=== PATIENT | male | born 1995 | race Caucasian/White ===

== ENCOUNTER 2017-01-15 14:08 | Emergency (ER) | payer OTHER ==
--- NOTE | 2017-01-15 14:26 | EDPHY ---
H & P Stated Complaint: R calf pain/thinks blood clot Time Seen by Provider: 01/15/17 14:25 HPI/ROS: CHIEF COMPLAINT: Right calf pain HISTORY OF PRESENT ILLNESS: The patient presents to the ED with a several day history of right calf pain. The patient denies obvious antecedent injury. He did report running with his dog last week but failed notice any traumatic complaints following that event. The patient does report a family history of DVT. The patient's father is noted to have Factor 5 Leiden. The patient has no complaints of chest pain or shortness of breath. The patient himself is not have prior history of PE or DVT. The patient reports his pain is moderate and worsened with palpation. REVIEW OF SYSTEMS: A comprehensive 10 point review of systems is otherwise negative aside from elements mentioned in the history of present illness. Source: Patient Exam Limitations: No limitations - Medical/Surgical History Other PMH: denies - Family History Significant Family History: Other (Factor 5 Leiden) - Social History Smoking Status: Never smoked - Physical Exam Exam: General Appearance: Alert, no distress Eyes: Pupils equal and round no pallor or injection ENT, Mouth: Mucous membranes moist Respiratory: There are no retractions, lungs are clear to auscultation Cardiovascular: Regular rate and rhythm Gastrointestinal: Abdomen is soft and nontender, no masses, bowel sounds normal Neurological: Alert and oriented x4, grossly normal motor function Skin: Warm and dry, no rashes Musculoskeletal: Neck is supple nontender Extremities: Tenderness to palpation noted in the right calf, no significant edema, 2+ dorsalis pedis pulse Constitutional: Initial Vital Signs Temperature (C) 36.6 C 01/15/17 14:11 Heart Rate 85 01/15/17 14:11 Respiratory Rate 18 01/15/17 14:11 Blood Pressure 147/84 H 01/15/17 14:11 O2 Sat (%) 99 01/15/17 14:11 O2 Delivery Mode Room Air Allergies/Adverse Reactions: No Known Allergies Allergy (Unverified 01/15/17 14:14) Home Medications: Medication Instructions Recorded Rivaroxaban [Xarelto 15mg (*)] 15 mg PO BID #42 tab 01/15/17 Medical Decision Making - Diagnostics Imaging Results: Imaging Impressions Extremity Venous Study 01/15/17 14:25 Impression: There is deep venous thrombosis involving the paired peroneal veins in the right calf. Findings were discussed with Jefferson Oliveira MD at 15:30, on 01/15/2017. ED Course/Re-evaluation: Given the patient's history of Factor 5 Leiden and complaints of acute right atraumatic calf pain a stat right lower extremity ultrasound was ordered. The patient is noted to have brisk pulses to the right foot. The patient has normal capillary refill and is neurologically intact. The patient's ultrasound does demonstrate clot within the peroneal system. The patient has no clinical evidence of a PE. I did speak with the patient's primary care provider Dr. Padilla Brown. The patient will be started on Xarelto and follow up with Dr. Brown in the office. Differential Diagnosis: Differential diagnosis considered DVT, myofascial strain, arterial thrombosis - Data Points Laboratory Results: Laboratory Results 01/15/17 16:02 01/15/17 16:02 01/15/17 01/15/17 01/15/17 16:02 16:02 16:02 WBC 11.63 10^3/uL H 10^3/uL (3.80-9.50) RBC 5.65 10^6/uL 10^6/uL (4.40-6.38) Hgb 18.6 g/dL H g/dL (13.7-17.5) Hct 52.4 % H % (40.0-51.0) MCV 92.7 fL fL (81.5-99.8) MCH 32.9 pg pg (27.9-34.1) MCHC 35.5 g/dL g/dL (32.4-36.7) RDW 11.9 % % (11.5-15.2) Plt Count 172 10^3/uL 10^3/uL (150-400) MPV 9.4 fL fL (8.7-11.7) Neut % (Auto) 68.6 % % (39.3-74.2) Lymph % (Auto) 23.4 % % (15.0-45.0) Angelina % (Auto) 5.9 % % (4.5-13.0) Eos % (Auto) 1.2 % % (0.6-7.6) Baso % (Auto) 0.5 % % (0.3-1.7) Nucleat RBC Rel Count 0.0 % % (0.0-0.2) Absolute Neuts (auto) 7.97 10^3/uL H 10^3/uL (1.70-6.50) Absolute Lymphs (auto) 2.72 10^3/uL 10^3/uL (1.00-3.00) Absolute Monos (auto) 0.69 10^3/uL 10^3/uL (0.30-0.80) Absolute Eos (auto) 0.14 10^3/uL 10^3/uL (0.03-0.40) Absolute Basos (auto) 0.06 10^3/uL 10^3/uL (0.02-0.10) Absolute Nucleated RBC 0.00 10^3/uL 10^3/uL (0-0.01) Immature Gran % 0.4 % % (0.0-1.1) Immature Gran # 0.05 10^3/uL 10^3/uL (0.00-0.10) PT 13.8 SEC SEC (12.0-15.0) INR 1.07 (0.83-1.16) APTT 25.2 SEC SEC (23.0-38.0) Sodium 142 mEq/L mEq/L (134-144) Potassium 4.4 mEq/L mEq/L (3.5-5.2) Chloride 105 mEq/L mEq/L (97-110) Carbon Dioxide 24 mEq/l mEq/l (22-31) Anion Gap 13 mEq/L mEq/L (8-16) BUN 16 mg/dL mg/dL (7-23) Creatinine 0.9 mg/dL mg/dL (0.7-1.3) Estimated GFR > 60 Glucose 97 mg/dL mg/dL (70-100) Calcium 10.2 mg/dL mg/dL (8.5-10.4) Departure - Departure Disposition: Home, Routine, Self-Care Clinical Impression: DVT (deep venous thrombosis) Qualifiers: DVT location: lower extremity Affected thrombotic vein of extremity: popliteal Chronicity: acute Laterality: right Qualified Code(s): I82.431 - Acute embolism and thrombosis of right popliteal vein Condition: Good Instructions: Deep Venous Thrombosis (ED) Additional Instructions: 1. Please begin the blood thinners as directed. 2. Please schedule a follow-up appointment with Dr. Brown. 3. You will take Xarelto 15 mg twice a day for 21 days and then transition to 20 mg once daily. 4. Please return to the ED for any acute chest pain or difficulty breathing. Referrals: Padilla Brown MD [Primary Care Provider] - As per Instructions Prescriptions: Rivaroxaban [Xarelto 15mg (*)] 15 mg PO BID #42 tab
[2017-01-15 16:13] LABS: % IMMATURE GRANULYOCYTES 0.4 % (0.0-1.1); ABSOLUTE IMMATURE GRANULOCYTES 0.05 10^3/uL (0.00-0.10); ADD DIFF? NO; ADD MORPH? NO; ADD SCAN? NO; ATYPICAL LYMPHOCYTE FLAG 20 (0-99); FRAGMENT RBC FLAG 0 (0-99); HEMATOCRIT 52.4 % (40.0-51.0); HEMOGLOBIN 18.6 g/dL (13.7-17.5); LEFT SHIFT FLG 0 (0-99); LIPEMIA HEMOLYSIS FLAG 90 (0-99); MEAN CELL HEMOGLOBIN 32.9 pg (27.9-34.1); MEAN CELL HEMOGLOBIN CONCENTR. 35.5 g/dL (32.4-36.7); MEAN CELL VOLUME 92.7 fL (81.5-99.8); MEAN PLATELET VOLUME 9.4 fL (8.7-11.7); PLATELET CLUMPS FLAG 0 (0-99); PLATELET COUNT 172 10^3/uL (150-400); RED BLOOD CELL COUNT 5.65 10^6/uL (4.40-6.38); RED CELL DISTRIBUTION WIDTH 11.9 % (11.5-15.2)
[2017-01-15 16:21] LABS: ANION GAP 13 mEq/L (8-16); CALCIUM 10.2 mg/dL (8.5-10.4); CARBON DIOXIDE 24 mEq/l (22-31); CHLORIDE 105 mEq/L (97-110); CREATININE 0.9 mg/dL (0.7-1.3); GLOMERULAR FILTRATION RATE > 60; GLUCOSE 97 mg/dL (70-100); POTASSIUM 4.4 mEq/L (3.5-5.2); SODIUM 142 mEq/L (134-144)
[2017-01-15 16:25] LABS: APTT 25.2 SEC (23.0-38.0); INR 1.07 (0.83-1.16); PROTIME(PATIENT) 13.8 SEC (12.0-15.0)
[2017-01-15] MEDS ORDERED: RIVAROXABAN 15 MG TAB PO ONE (16:30)
[2017-01-15 17:09] VITALS: BP 124/78; PULSE 81; RESP 16; TEMP 98.1; O2SAT 97
[2017-01-18 16:29] LABS: INTERPRETATION See Comments
== END 2017-01-15 17:08 | disposition home or self-care (01) ==
DX: I82.431 Acute embolism and thrombosis of right popliteal vein (principal); Z79.01 Long term (current) use of anticoagulants

== ENCOUNTER 2018-01-26 19:42 | Emergency (ER) | payer OTHER ==
--- NOTE | 2018-01-26 20:16 | EDPHY ---
H & P Time Seen by Provider: 01/26/18 20:04 HPI/ROS: CHIEF COMPLAINT: Right leg pain HISTORY OF PRESENT ILLNESS: Patient is a 23-year-old male inconsistently on Xarelto with a previous DVT who presents emergency department with right lower extremity pain. Patient states he was diagnosed with a right lower extremity DVT in 2017. He was worked up because his dad has factor 5 Leiden. His testing was negative. He has been on Xarelto since that time. The patient states over the past few weeks he has it been inconsistent with his Xarelto. Patient states that he has missed 5 doses over the past 2 weeks. He currently has a prescription and pills at home. Patient has no recent travel. He denies smoking. REVIEW OF SYSTEMS: 10 systems were reveiwed and are negative with the exception of the elements mentioned in the history of present illness. Past Medical/Surgical History: Includes previous DVT, jaw surgery foot surgery Family history: The patient's father has factor 5 Leiden Smoking Status: Never smoked Physical Exam: Vitals noted GENERAL: Well-appearing, in no acute distress, alert. HEENT: Eyes normal to inspection, normal pharynx, no signs of dehydration. NECK: Normal, supple. RESPIRATORY: Clear to auscultation bilaterally, no rales, rhonchi or wheezing. CVS: Regular rate and rhythm, no rubs, murmurs, or gallops. ABDOMEN: Soft, nontender, nondistended, no organomegaly. BACK: Normal to inspection, no CVA tenderness. SKIN: Normal color, no rash, warm, dry. No pallor. EXTREMITIES: No pedal edema, no calf tenderness, no Homans sign or cords, no joint swelling. NEURO/PSYCH: Alert and oriented, normal mood and affect, normal motor sensory exam. Constitutional: Initial Vital Signs Temperature (C) 36.7 C 01/26/18 19:46 Heart Rate 69 01/26/18 19:46 Respiratory Rate 20 01/26/18 19:46 Blood Pressure 111/57 L 01/26/18 19:46 O2 Sat (%) 98 01/26/18 19:46 Allergies/Adverse Reactions: No Known Allergies Allergy (Unverified 01/26/18 19:45) Home Medications: Medication Instructions Recorded Rivaroxaban [Xarelto 15mg (*)] 15 mg PO BID #42 tab 01/15/17 Medical Decision Making ED Course/Re-evaluation: Emergency department I discussed possible etiologies with the patient. I answered all his questions. Ultrasound of the right lower extremity was ordered. Ultrasound: Please refer the dictated report. No acute disease noted. No DVT. I discussed the results with the patient. I answered all his questions. He was instructed on the proper use of his Xarelto. He will follow up with primary care physician. He was given warnings prior to leaving. Differential Diagnosis: My differential includes but is not limited to DVT, arterial occlusion, popliteal cyst, abscess, strain, sprain Departure - Departure Disposition: Home, Routine, Self-Care Clinical Impression: Right leg pain Condition: Good Instructions: Leg Pain (ED) Additional Instructions: Return with increasing pain, weakness, numbness, fever, shortness of breath or any other concerns. Take your Xarelto as directed. Referrals: Padilla Brown MD [Primary Care Provider] - 5-7 days, call for appt.
[2018-01-26 21:17] VITALS: BP 122/66
== END 2018-01-26 21:15 | disposition home or self-care (01) ==
DX: M79.604 Pain in right leg (principal); Z86.718 Personal history of other venous thrombosis and embolism; Z79.01 Long term (current) use of anticoagulants